=== PATIENT | male | born 1970 | race Caucasian/White ===

== ENCOUNTER 2023-08-05 09:39 | Outpatient (CLI) | payer OTHER, SELFPAY ==
--- NOTE | 2023-08-05 11:00 | NEURO_ITS ---
Impression: # Complains of numbness of upper right thigh. # Normal motor and sensory Nerve Conduction Study including F-waves. # Normal needle/EMG exam. # Clinical correlation recommended. Nerve Conduction Studies Anti Sensory Summary Table Stim Site NR Peak (ms) P-T Amp (?V) Site1 Site2 Delta-P (ms) Dist (cm) [place] (m/s) Left Saphenous Anti Sensory (Ant Med Mall) 14cm 3.3 19.1 14cm Ant Med Mall 3.3 0.0 Right Saphenous Anti Sensory (Ant Med Mall) 14cm 3.5 4.5 14cm Ant Med Mall 3.5 0.0 Left Sup Fibular Anti Sensory (Ant Lat Mall) 14 cm 3.7 9.7 14 cm Ant Lat Mall 3.7 16.0 43 Right Sup Fibular Anti Sensory (Ant Lat Mall) 14 cm 3.4 8.5 14 cm Ant Lat Mall 3.4 16.0 47 Left Sural Anti Sensory (Lat Mall) Calf 3.8 9.9 Calf Lat Mall 3.8 16.0 42 Right Sural Anti Sensory (Lat Mall) Calf 3.4 7.7 Calf Lat Mall 3.4 16.0 47 Motor Summary Table Stim Site NR Onset (ms) O-P Amp (mV) Site1 Site2 Delta-0 (ms) Dist (cm) [place] (m/s) Left Peroneal Motor (Vastus Med) Ankle 3.4 2.6 Popit Ankle 8.3 40.0 48 Popit 11.7 1.9 Right Peroneal Motor (Vastus Med) Ankle 3.3 2.4 Popit Ankle 8.0 38.0 48 Popit 11.3 2.0 Left Tibial Motor (Abd Shelton Brev) Ankle 3.8 2.5 Knee Ankle 8.9 40.0 45 Knee 12.7 2.5 Right Tibial Motor (Abd Shelton Brev) Ankle 3.5 4.2 Knee Ankle 8.6 40.0 47 Knee 12.1 3.1 F Wave Studies NR F-Lat (ms) L-R F-Lat (ms) Left Peroneal (Mrkrs) (EDB) 47.20 0.33 Right Peroneal (Mrkrs) (EDB) 46.88 0.33 Left Tibial (Mrkrs) (Abd Hallucis) 46.85 0.82 Right Tibial (Mrkrs) (Abd Hallucis) 47.66 0.82 EMG Side Muscle Nerve Root Ins Act Fibs Amp Dur Recrt Comment Right AntTibialis Dp Br Fibular L4-5 Nml Nml Nml Nml Nml Right Gastroc Tibial S1-2 Nml Nml Nml Nml Nml Right Fibularis Long Sup Br Fibular L5-S1 Nml Nml Nml Nml Nml Right Flex Dig Long Tibial L5-S2 Nml Nml Nml Nml Nml Right Ext Dig Brev Dp Br Fibular L5, S1 Nml Nml Nml Nml Nml Left AntTibialis Dp Br Fibular L4-5 Nml Nml Nml Nml Nml Left Gastroc Tibial S1-2 Nml Nml Nml Nml Nml Left Fibularis Long Sup Br Fibular L5-S1 Nml Nml Nml Nml Nml Left Flex Dig Long Tibial L5-S2 Nml Nml Nml Nml Nml Left Ext Dig Brev Dp Br Fibular L5, S1 Nml Nml Nml Nml Nml MTDD
== END 2023-08-05 09:40 | disposition home or self-care (01) ==
LOC: ANHNEURO 09:40
PROVIDERS: PCP Family Medicine; Visit Provider Neurological Surgery
DX: R20.0 Anesthesia of skin (principal)
CPT/HCPCS: 95886; 95911

== ENCOUNTER 2025-06-27 02:20 | Day surgery (SDC) | payer OTHER, SELFPAY ==
--- OUTSIDE RECORDS SUMMARY | 2025-03-03 11:30 | XMS_ITS ---
Author Organization [facility] [place] ([address]) Address [address] [place] [address] Care Team Providers Care Manager Asset Management Name Role Phone Erica Albrecht Primary Care Provider UnavailMary Lou Garcia Unavailable [phone] REASON FOR VISIT 8-10 episodes of throat tightness x 1-2 mins in the middle of night over the last 3 years, Chronic upper airway symptoms concerning for uncontrolled atopic disease Medications Medication SIG (Take, Route, Frequency, Duration) Notes Start Date End Date Status EPINEPHrine 0.3 MG/0.3ML Injection; Dura tion: 1 Days Active Rosuvastatin Calcium 20 MG Oral; Duratio n: 10 Days Active hydroCHLOROthiazide 12.5 MG 1 capsule in the morning Orally Once a day Active Vitamin D (Ergocalciferol) 1.25 MG (98921 UT) TAKE 1 CAPSULE BY MOUTH WEEKLY Oral; Duration: 28 Days Active Ezetimibe 10 MG 1 tablet Orally Once a day Not-Taking Albuterol Sulfate HFA 108 (90 Base) MCG/ACT INHALE 2 PUFFS BY MOUTH EVERY 4 HOURS NEEDED FOR SHORTNESS OF BREATH OR WHEEZING Inhalation Active Vitamin B 12 100 MCG as directed Orally Active Nitroglycerin 0.4 MG 1 tablet under the tongue and allow to dissolve as needed. Take every 5 minutes up to 3 times if chest pain persists Sublingual Three times a day Active Ezetimibe 10 MG 1 tablet Orally Once a day Active Clopidogrel Bisulfate 75 MG 1 tablet Ora lly Once a day Active Singulair 10 MG 1 tablet Orally Once a day Active Cetirizine HCl 10 MG 1 tablet Orally Onc e a day; Duration: 30 days 11/27/2024 Active Nasal Washes N/A as directed intranasally 11/27/2024 Active Omeprazole 20 MG 1 tablet Orally twice a day; Duration: 30 days Active Flonase Allergy Relief 50 MCG/ACT 1 spray in each nostril Nasally Twice a day Active Social History Sex Assigned At : Social History Observation Description Sex Assigned At Male Problems Problem Type SNOMED Code ICD Code Onset Dates Problem Status W/U Status Risk Notes Problem Chronic rhinitis (92153295) Chronic rhinitis (J31.0) Active confirmed Encounters Encounter Location Date Provider Diagnosis [facility] [address] [place] [address] 03/03/2025 Mary Lou Kimball Chronic sinusitis, unspecified J32.9 ; Laryngeal spasm J38.5 ; Hypertrophy of nasal turbinates J34.3 ; Chronic rhinitis J31.0 ; Gastro-esophageal reflux disease without esophagitis K21.9 and Shortness of breath R06.02 Assessments Encounter Date Diagnosis (ICD Code) Assessment Notes Treatment Notes Treatment Clinical Notes Section Notes 03/03/2025 Chronic sinusitis, unspecified (ICD-10 - J32.9) - Given recurrent sinusitis/bronchit is, melissa ARTHUR criteria for modified PIDD work-up. Will obtain labs now to include vitamin D level 03/03/2025 Laryngeal spasm (ICD-10 - J38.5) Possible VCD vs. Laryngeal spasms vs. uncontrolled ALVIN -There is flattening on inspiratory loop of spirometry. Will change him to PPI BID and return back for SPT -I will start him on VCD exercises and have him see Dr. Manfred Dudley at the voice and throat center at [facility] 03/03/2025 Hypertrophy of nasal turbinates (ICD-10 - J34.3) Chronic upper airway symptoms concerning for ARC. Unable to undergoing SPT today due to recent antihistamine use/dermatrophia. Plan to return next month for SPT holding all antihistamines x 7 days. Okay to use Flonase in the mean time 03/03/2025 Chronic rhinitis (ICD-10 - J31.0) See plan above 03/03/2025 Gastro-esophage al reflux disease without esophagitis (ICD-10 - K21.9) LIkely contributing to throat episodes -will switch to Omeprazole 20 mg BID for the next month as he needs to be off Pepcid for skin testing 03/03/2025 Shortness of breath (ICD-10 - R06.02) Spirometry today suggestive of mild restriction but TLC not measured. Likely due to body habitus -has yet to trial BECCA given by PCP -consider BD challenge but declined today as he reports no lower airway symptoms - only trouble breathing when he has these acute episodes -Will trial VCD exercises as there is clear inspiratory flattening 03/03/2025 Other Plan Of Treatment Medication Medication Name Sig Start Date Stop Date Notes Albuterol Sulfate HFA 108 (9 0 Base) MCG/ACT INHALE 2 PUFFS BY MOUTH EVERY 4 HOURS NEEDED FOR SHORTNESS OF BREATH OR WHEEZING Inhalation Singulair 10 MG 1 tablet Orally Once a day Omeprazole 20 MG 1 tablet Orally twic e a day; Duration: 30 days Flonase Allergy Relief 50 MCG/ACT 1 spray in each nostril Nasally Twice a day Treatment Notes Assessment Notes Chronic sinusitis, unspecified - Given r ecurrent sinusitis/bronchitis, melissa F criteria for modified PIDD work-up. Will obtain labs now to include vitamin D level Laryngeal spasm Possible VCD vs. Laryngeal spasms vs. uncontrolled ALVIN -There is flattening on inspiratory loop of spirometry. Will change him to PPI BID and return back for SPT -I will start him on VCD exercises and have him see Dr. Manfred Dudley at the voice and throat center at [facility] Hypertrophy of nasal turbinates Chronic upper airway symptoms concerning for ARC. Unable to undergoing SPT today due to recent antihistamine use/dermatrophia. Plan to return next month for SPT holding all antihistamines x 7 days. Okay to use Flonase in the mean time Chronic rhinitis See plan above Gastro-esophageal reflux dis ease without esophagitis LIkely contributing to throat episodes -will switch to Omeprazole 20 mg BID for the next month as he needs to be off Pepcid for skin testing Shortness of breath Spirometry today suggestive of mild restriction but TLC not measured. Likely due to body habitus -has yet to trial BECCA given by PCP -consider BD challenge but declined today as he reports no lower airway symptoms - only trouble breathing when he has these acute episodes -Will trial VCD exercises as there is clear inspiratory flattening Next Appt Details Follow Up: 4 Weeks, Reason: Evaluation and Management, Lab review, skin testing Provider Name:Mary Lou Kimball , 07/21/2025 12:30:00 PM, [address], [place], [address], Progress Notes * Preston PITTMAN WDOB:[birth year] (55 yo M)Acc No.[id number]:03/03/2025 Progress Notes Patient: Preston TSANG Provider: Alivia Kimball PA-C :1970 A ge:55 Y S ex:Male Date:03/03/2025 Address:[address] [place], [place] [id number] Pcp:Erica Albrecht Subjective: * Chief Complaints: * 1 . 8-10 episodes of throat tightness x 1-2 mins in the middle of night over the last 3 years. 2. Chronic upper airway symptoms concerning for uncontrolled atopic disease. * HPI: * Introduction: HPI: Madalyn Pittman is a 54-year-old male with a history of ALVIN, reflux, CAD with prior [place], Vitamin D and B12 deficiency here today for allergy evaluation and mangement. Preston is alone for today's visit. Here at the recommendatioin of Erica Albrecht. He reports experiencing at least 8-10 episodes over the last 3 years where he wakes up in the middle of the night with his throat tightening up, making it difficult to breathe. These episodes typically make him jump out of bed and are described as abrupt and scary. Over several minutues it is tight then relaxes. He also will walk around his house and try to relax or do deep breaths. His PCP wants to make sure his cat isnt triggering these episodes but he reports that cat has lived with him for years. These episodes are very random. Has occurred twice when eating spicy foods but doesnt recall specifics. No prior ENT evaluation. Has a CPAP, which his dane reports loud snoring even with use. Recently adjusted but he does not have a pulmonary provider. He has chronic reflux, has been on Famotidine BID for year but ran out 2 days ago. Also recently given albuterol to trial for these symptoms but hasnt used it. He has no history of chronic cough, dyspnea, or wheezing. No prior inhaler use. No ER visits for hospitalizations or ER visits. Descriptors of his upper airways symptoms are outlined below.He has never undergone allergy skin testing or received allergy immunotherapy. He has chronic sinus symptoms marked by congestion, MATUTE, pressure, and draiange. Has been using Flonase and Montelukast for years but feels neither helps. Recently tried Zyrtec but felt no difference. He has at least 3-5 sinus infections a year. He had sinus surgery roughly 30 years ago which he feels helps. No medications he feels helps his congestion.Additionally, Preston has a history of a heart attack in January 2023 and is managed by Cardiology. 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 * Allergic Rhinoconjunctivitis: Allergic rhinitis D o you have or suspect you have allergic rhinitis (itchy eyes, sneezing, congestion or runny nose triggered by allergies)? Y es W hich areas and what symptoms are involved? Please fill out each section below as needed. e ars,nose,headache,sinuses D o you have any of the following other symptoms associated with your allergic rhinitis? l oud snoring Ears S pecific affected area: b oth (bilateral) H ow often? i ntermittent S ymptoms: p lugged Nose S pecific area affected: b oth (bilateral) O ccurence? i ntermittent H ow frequent? w eekly W hen does this mostly occur? p .m. S ymptoms? c ongestion,sinus infection E ffective treatments? n jevon steroid sprays (Flonase or Nasonex or Veramyst) Sinuses D o you have sinus pain? Y es H ave you lost sense of taste? N o W here? c enter of forehead above eyes (frontal),over left cheek (maxillary),over right cheek (maxillary H ave you been treated with antibiotics for sinusitis? Y es H ow often in the past year? 3 - 5 times W hat is the longest duration of antibiotics prescribed and completed? 6 -10 days H ave you ever had a CT scan or xray? N o H ave you ever undergone sinus surgery? Y es W here? O ther outpatient physician or surgery center Headache S pecific area(s) affected? c enter forehead (frontal),over left cheek (maxillary),over right cheeck (maxillary) O ccurence? i ntermittent H ow frequent? w eekly W hat time of day does this mostly occur? a .m. * Prior Evaluations and Treatments: Prior evaluations and treatments H ave you been evaluated by another physician for allergic rhinitis, cough, wheezing, asthma, urticaria, angioedema, atopic dermatitis or eczema??No H ave you undergone testing for any aforementioned conditions or symptoms? N o H ave you ever been on allergy immunotherapy??No H ave you ever passed out during a blood draw, shot or vaccination? N o Last dose of antihistamine: H as your antihistamine been effective in controlling any of your symptoms? N o D o you take any other psychiatric medication??No * Infections: Vaccination History H ave you ever had a flu shot? Y es D ate of last flu shot? 0 08/04/2009 H ave you ever had a pneumococcal vaccine ([id number]-[id number])? N o H ave you ever had a tetanus vaccine (DUps-Jlog-[id number])? Y es D ate of last tetanus vaccine? 0 D id it contain pertussis as well? N o Ear Infections D o you have frequent ear infections? N o Sinusitis (Sinus infections) D o you have frequent episodes of sinusitis??Yes H ow many episodes over the past 12 months??3 H ave you been treated with antibiotics for sinusitis? Y es H ow many courses of antibiotics for sinusitis in the past year? 3 -5 times W hat is the longest course of antibiotics you have taken for sinusitis? 1 0 days H ave you been seen by an campus administrator or community relations specialist to evaluate your immune system function for recurrent sinus infections? N o Sinus Symptoms and Surgery D o you have chronic or recurrent sinus symptoms? Y es D o you have a history of nasal polyps? Y es D o you have sinus pain? Y es D o you have a loss of sense of taste? N o H ave you used any of the following treatments for your sinuses? n jevon steroid sprays H ave you ever had a sinus CT or X-Ray? N o H ave your ever undergone sinus surgery? Y es H ave you had more than one? N o I mprovement in symptoms after surgery? Y es Bronchitis History D o you get frequent bronchitis? N o Pneumonia History H ave you ever had pneumonia or recurrent pneumonia? Y es H ow many episodes in your entire life? 1 H ow many episodes in the past 12 months? 0 H ave you been treated with antibiotics for pneumonia? Y es H ave you been hospitalized for treatment??Yes H ave you been seen by an campus administrator or community relations specialist to evaluate your immune system function for recurrent pneumonia N o * Food allergy: Food Allergy D o you currently have or have you ever had any proven or suspected food allergies? N o * ROS: A LLERGY: runny nose Y es. e ar fullness Y es. s inus congestion Y es. P ositive p er the HPI and history, otherwise unremarkable. ? S PECIAL SENSES: Positve for n one. l oss of balance Y es. ? C ONSTITUTIONAL: fatigue Y es. P ositive for n one. E NT: sinus pain Y es. P ositive p er the HPI and history, otherwise unremarkable. R ESPIRATORY: chest congestion Y es. P ositive p er the HPI and history, otherwise unremakable. O PHTHALMOLOGY: Positive for p er the HPI and history, otherwise unremarkable. E NDOCRINOLOGY: sleep disturbance Y es. d iabetes Y es. P ositive for n one. C ARDIOLOGY: dizziness Y es. P ositive for n one. ? G ASTROENTEROLOGY: nausea Y es. v omiting N o. P ositive for n one. U ROLOGY: Positive for n one. D ERMATOLOGY: Positive for p er the HPI and history, otherwise unremakable. N EUROLOGY: headache Y es. t ingling numbness Y es. m brandon loss Y es. d izziness Y es. P ositive for n one. H EMATOLOGY/LYMPH: Positive for n one. M USCULOSKELETAL: joint pain Y es. j oint stiffness Y es. f racture Y es. c arpal tunnel Y es. P ositive for n one. P SYCHOLOGY: high stress level Y es. s leep disturbances Y es.?Positive for n one. M CELESTE REPRODUCTIVE: difficulty with erection Y es. d iminished sexual drive?Yes. A ll other review of systems per the HPI and history, otherwise unremarkable. * Medical History: * Medications: T aking Omeprazole 20 MG Capsule Delayed Release 1 tablet Orally twice a day , Taking Albuterol Sulfate HFA 108 (90 Base) MCG/ACT Aerosol Solution INHALE 2 PUFFS BY MOUTH EVERY 4 HOURS NEEDED FOR SHORTNESS OF BREATH OR WHEEZING Inhalation , Taking Vitamin B 12 100 MCG Lozenge as directed Orally , Taking Nitroglycerin 0.4 MG Tablet Sublingual 1 tablet under the tongue and allow to dissolve as needed. Take every 5 minutes up to 3 times if chest pain persists Sublingual Three times a day , Taking Ezetimibe 10 MG Tablet 1 tablet Orally Once a day , Taking Clopidogrel Bisulfate 75 MG Tablet 1 tablet Orally Once a day , Taking hydroCHLOROthiazide 12.5 MG Capsule 1 capsule in the morning Orally Once a day , Taking Vitamin D (Ergocalciferol) 1.25 MG (59916 UT) Capsule TAKE 1 CAPSULE BY MOUTH WEEKLY Oral , Taking EPINEPHrine 0.3 MG/0.3ML Solution Auto-injector Injection , Taking Rosuvastatin Calcium 20 MG Tablet Oral , Taking Flonase Allergy Relief 50 MCG/ACT Suspension 1 spray in each nostril Nasally Twice a day , Taking Singulair 10 MG Tablet 1 tablet Orally Once a day , Taking Cetirizine HCl 10 MG Tablet 1 tablet Orally Once a day , Taking Nasal Washes N/A 1 quart of sterilized tap water or distilled water, 1 tsp NaCl, 1 pinch of baking soda as directed intranasally , Not-Taking/PRN Ezetimibe 10 MG Tablet 1 tablet Orally Once a day Objective: * Vitals: * Examination: G eneral examination: General appearance: p leasant, well-developed, well-nourished, in no apparent distress, speaking in full sentences. HEENT: c onjunctiva are normal bilaterally, TMs without evidence of acute infection, turbinates 2+ swollen and pale inferiorly bilaterally, clear rhinorrhea is present, no polyps noted, no septal perforation, posterior oropharynx is clear without exudates, erythema on pharyngeal wall, no exudates, no tongue swelling, and uvula is midline. Oral cavity: n ormal, no lesions. Breasts : n ot performed. Heart: R RR, S1-S2, no murmurs, no rubs, no gallops. Lungs: c lear to auscultation in all lung moore, no wheezes, no crackles, no rhonchi. Neurologic exam: u nremarkable. Skin: n ormal, no visible rash, dermatographism, urticaria, angioedema. Back: n ormal. Extremities: n ormal ROM, no clubbing, no cyanosis, no edema. Genitalia: n ot performed. Assessment: * Assessment: 1. C hronic sinusitis, unspecified - J32.9 (Primary) 2 . L aryngeal spasm - J38.5 3 . H ypertrophy of nasal turbinates - J34.3 4 . C hronic rhinitis - J31.0 5 . G antonio-esophageal reflux disease without esophagitis - K21.9 6 . S hortness of breath - R06.02 Plan: * Treatment: 2. L aryngeal spasm Notes: Possible VCD vs. Laryngeal spasms vs. uncontrolled ALVIN -There is flattening on inspiratory loop of spirometry. Will change him to PPI BID and return back for SPT -I will start him on VCD exercises and have him see Dr. Manfred Dudley at the voice and throat center at [facility] 3. H ypertrophy of nasal turbinates Continue Flonase Allergy Relief Suspension, 50 MCG/ACT, 1 spray in each nostril, Nasally, Twice a day; C ontinue Singulair Tablet, 10 MG, 1 tablet, Orally, Once a day. Notes: Chronic upper airway symptoms concerning for ARC. Unable to undergoing SPT today due to recent antihistamine use/dermatrophia. Plan to return next month for SPT holding all antihistamines x 7 days. Okay to use Flonase in the mean time 4. C hronic rhinitis Notes: See plan above 5. G antonio-esophageal reflux disease without esophagitis Start Omeprazole Capsule Delayed Release, 20 MG, 1 tablet, Orally, twice a day, 30 days, 60 Tablet, Refills 1. Notes: LIkely contributing to throat episodes -will switch to Omeprazole 20 mg BID for the next month as he needs to be off Pepcid for skin testing 6. S hortness of breath Continue Albuterol Sulfate HFA Aerosol Solution, 108 (90 Base) MCG/ACT, INHALE 2 PUFFS BY MOUTH EVERY 4 HOURS NEEDED FOR SHORTNESS OF BREATH OR WHEEZING, Inhalation. Notes: Spirometry today suggestive of mild restriction but TLC not measured. Likely due to body habitus -has yet to trial BECCA given by PCP -consider BD challenge but declined today as he reports no lower airway symptoms - only trouble breathing when he has these acute episodes -Will trial VCD exercises as there is clear inspiratory flattening * Procedure Codes: 9 6160 PT-FOCUSED HLTH RISK ASSMT, G8427 DOC MEDS VERIFIED W/PT OR RE, A4617 Mouthpiece, 40545 RESPIRATORY FLOW VOLUME LOOP, 47234 Mookie Kimball Incident-to * Preventive Medicine: Counseling: M edication instruction: W atch for side effects of prescribed medications, Nasal steroid/antihistamine instruction: avoid septum. E ducation: G ENERAL EDUCATION: Our staff spent an additional 30 minutes in direct contact with the patient educating them on their current diagnoses and proper treatment and prevention of symptoms and the proper use of medications. E ducation 2: A RC EDUCATION: Our staff discussed the appropriate allergen avoidance measures and medication utilization including upper airway hygiene with daily nasal washes given the patient's clinical status and diagnoses. SCIT EDUCATION: Discussed allergy immunotherapy including the relative risks, benefits and alternatives to this treatment as an adjunctive measure to current therapy, Allergy Immunotherapy: Risks: bleeding, infection, allergic reaction, anaphylaxis = severe allergic reaction that can cause ; Benefits: reduced need for medications, improved symptoms, disease modification. Alternatives: watch/wait, change medication regimen, improve allergy avoidance measures, Our staff discussed the warning signs of anaphylaxis and the indications to use self-injectable epinephrine and seek urgent or emergent care. P atient education material sent to portal? Y es Screenings: F all Risk Fall Risk Assessment: N o falls in the past year +. * Follow Up: 4 Weeks (Reason: Evaluation and Management, Lab review, skin testing) * Billing Information: * Visit Code: 98102 Office Visit, New Pt., Level 4. Modifiers: 25 * Procedure Codes: 22988 PT-FOCUSED HLTH RISK ASSMT. G8427 DOC MEDS VERIFIED W/PT OR RE. A4617 Mouthpiece. 31881 RESPIRATORY FLOW VOLUME LOOP. 09175 Mookie Kimball Incident-to. * Electronic signature of Alhaji Kimball PA-C, [facility] on 06/27/2025 at 02:23 AM TELECOMMUNICATIONS FACILITY EXAMINER Sign off status: Pending * Provider: Alivia Kimball PA-C Date: 0 03/03/2025 Generated for Heath kahn/Lauren/eTransmitting on: 1 08/27/2024 02:23 AM TELECOMMUNICATIONS FACILITY EXAMINER History and Physical Notes * HPI (History of Present Illness) Category Sub-Category Detail Notes Category Not es *Introduction HPI: Preston Pittman is a 54-year-old male with a history of ALVIN, reflux, CAD with prior [place], Vitamin D and B12 deficiency here today for allergy evaluation and mangement. Preston is alone for today's visit. [facility] He reports experiencing at least 8-10 episodes over the last 3 years where he wakes up in the middle of the night with his throat tightening up, making it difficult to breathe. These episodes typically make him jump out of bed and are described as abrupt and scary. Over several minutues it is tight then relaxes. He also will walk around his house and try to relax or do deep breaths. His PCP wants to make sure his cat isnt triggering these episodes but he reports that cat has lived with him for years. These episodes are very random. Has occurred twice when eating spicy foods but doesnt recall specifics. No prior ENT evaluation. Has a CPAP, which his dane reports loud snoring even with use. Recently adjusted but he does not have a pulmonary provider. He has chronic reflux, has been on Famotidine BID for year but ran out 2 days ago. Also recently given albuterol to trial for these symptoms but hasnt used it. He has no history of chronic cough, dyspnea, or wheezing. No prior inhaler use. No ER visits for hospitalizations or ER visits. Descriptors of his upper airways symptoms are outlined below. He has never undergone allergy skin testing or received allergy immunotherapy. He has chronic sinus symptoms marked by congestion, MATUTE, pressure, and draiange. Has been using Flonase and Montelukast for years but feels neither helps. Recently tried Zyrtec but felt no difference. He has at least 3-5 sinus infections a year. He had sinus surgery roughly 30 years ago which he feels helps. No medications he feels helps his congestion. Additionally, Preston has a history of a heart attack in January 2023 and is managed by Cardiology. 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 He denies a history of physician-diagnosed allergic rhinitis, recurrent sinusitis or otitis media, recurrent pneumonia, asthma/RAD, eczema, food allergies, urticaria/angioedema, medication allergies, contact dermatitis, latex allergy, eosinophilic esophagitis or stinging insect hypersensitivity. *Allergic Rhinoconjunctivitis Ears Specific affected area:: both (bilateral) How often?: intermittent Symptoms:: plugged Nose Specific area affected:: both (b ilateral) Occurence?: intermittent How frequent?: weekly When does this mostly occur?: p.m. Symptoms?: congestion,sinus infection Effective treatments?: nasal steroid spr ays (Flonase or Nasonex or Veramyst) Headache Specific area(s) aff ected?: center forehead (frontal),over left cheek (maxillary),over right cheeck (maxillary) Occurence?: intermittent How frequent?: weekly What time of day does this mostly occur? : a.m. Sinuses Do you have sinus pain?: Yes Have you lost sense of taste?: No Where?: center of forehead above eyes (frontal),over left cheek (maxillary),over right cheek (maxillary Have you been treated with antibiotics f or sinusitis?: Yes How often in the past year?: 3 - 5 times What is the longest duration of antibiotics prescribed and completed?: 6-10 days Have you ever had a CT scan or xray?: No Have you ever undergone sinus surgery?: Yes Where?: Other outpatient physician or surgery center Allergic rhinitis Do you have or suspe ct you have allergic rhinitis (itchy eyes, sneezing, congestion or runny nose triggered by allergies)?: Yes Which areas and what symptoms are involved? Please fill out each section below as needed.: ears,nose,headache,sinuses Do you have any of the following other symptoms associated with your allergic rhinitis?: loud snoring *Infections Vaccination History Have you ever had a flu sh ot?: Yes Date of last flu shot?: 08/04/2009 Have you ever had a pneumococcal vaccine ([facility])?: No Have you ever had a tetanus vaccine (DTa p-Tdap-Td)?: Yes Date of last tetanus vaccine?: Did it contain pertussis as well?: No Ear Infections Do you have frequent ear infecti ons?: No Sinusitis (Sinus infections) Do you have frequen t episodes of sinusitis?: Yes How many episodes over the past 12 months?: 3 Have you been treated with antibiotics for sinusitis?: Yes How many courses of antibiotics for sinusitis in the past year?: 3-5 times What is the longest course of antibiotics you have taken for sinusitis?: 10 days Have you been seen by an campus administrator or community relations specialist to evaluate your immune system function for recurrent sinus infections?: No Sinus Symptoms and Surgery Do you have c hronic or recurrent sinus symptoms?: Yes Do you have a history of nasal polyps?: Yes Do you have sinus pain?: Yes Do you have a loss of sense of taste?: N o Have you used any of the fol lowing treatments for your sinuses?: nasal steroid sprays Have you ever had a sinus CT or X-Ray?: No Have your ever undergone sinus surgery?: Yes Have you had more than one?: No Improvement in symptoms after surgery?: Yes Bronchitis History Do you get frequent bronchiti s?: No Pneumonia History Have you ever had pneumonia or recurrent pneumonia?: Yes How many episodes in your entire life?: 1 How many episodes in the past 12 months?: 0 Have you been treated with antibiotics for pneumonia? : Yes Have you been hospitalized for treatment?: Yes Have you been seen by an campus administrator or community relations specialist to evaluate your immune system function for recurrent pneumonia: No *Prior Evaluations and Treatments Prior evaluations and treatments Have you been evaluated by another physician for allergic rhinitis, cough, wheezing, asthma, urticaria, angioedema, atopic dermatitis or eczema?: No Have you undergone testing for any afore mentioned conditions or symptoms?: No Have you ever been on allergy immunother apy?: No Have you ever passed out during a blood draw, shot or vaccination?: No Last dose of antihistamine: Has your ant ihistamine been effective in controlling any of your symptoms?: No Do you take any other psychiatric medica tion?: No *Food allergy Food Allergy Do you currently have or have you ever had any proven or suspected food allergies?: No Examination Category Sub-Category Detail Notes Category Not es General examination HEENT: conjunctiva are normal bilaterally, TMs without evidence of acute infection, turbinates 2+ swollen and pale inferiorly bilaterally, clear rhinorrhea is present, no polyps noted, no septal perforation, posterior oropharynx is clear without exudates, erythema on pharyngeal wall, no exudates, no tongue swelling, and uvula is midline Heart: RRR, S1-S2, no murmu rs, no rubs, no gallops Lungs: clear to auscultatio n in all lung moore, no wheezes, no crackles, no rhonchi Extremities: normal ROM, no clubb ing, no cyanosis, no edema General appearance: pleasant, well-devel oped, well-nourished, in no apparent distress, speaking in full sentences Skin: normal, no visible r susanna, dermatographism, urticaria, angioedema Neurologic exam: unremarkable Oral cavity: normal, no lesions Breasts : not performed Back: normal Genitalia: not performed
[2025-06-20 08:43] VITALS: BMI 35.0
--- NOTE | 2025-06-20 09:04 | PC.NURSE ---
Spoke with PATIENT regarding medication PLAVIX. PATIENT verbalizes understanding that the last dose is to be taken on 06/19/2025 and the Endoscopist will instruct them when to restart after the procedure.
--- OUTSIDE RECORDS SUMMARY | 2025-06-27 02:23 | XMS_ITS | Encounter Summary ---
Author Organization [facility] Address [facility] [place] [address] Care Team Providers Care Stem Setter Name Role Phone Richard Moreno MD Primary Care Provider [phone] Erica Albrecht Primary Care Provider [phone] Encounter Details Date Type Department Care Team (Late st Contact Info) Description 04/27/2023 [employer] Message Enc [facility], [address] [place], [place] [id number] Anjelica Ferrell PA-C [address] [facility], [address] [place], [place] [id number] labs Social History Tobacco Use Types Packs/Day Years Used Date Smoking Tobacco: Never Smokeless Tobacco: Never Alcohol Use Standard Drinks/Week Comments Yes 0 (1 standard drink = 0.6 oz pur e alcohol) Humiliation, Afraid, Rape, and Kick questionnair e Answer Date Recorded Within the last year, have y ou been afraid of your partner or ex-partner? No 01/09/2023 Within the last year, have y ou been humiliated or emotionally abused in other ways by your partner or ex-partner? No Within the last year, have y ou been kicked, hit, slapped, or otherwise physically hurt by your partner or ex-partner? No 01/09/2023 Within the last year, have y ou been raped or forced to have any kind of sexual activity by your partner or ex-partner? No 01/09/2023 AUDIT-C Answer Date Recorded Frequency of Alcohol Consumption Monthly or less 03/24/2019 Average Number of Drinks 1 or 2 019 Frequency of Binge Drinking Never 03/05 Overall Financial Resource Strain (CARDIA) Answe r Date Recorded How hard is it for you to pa y for the very basics like food, housing, medical care, and heating? Not hard at all 01/09/2023 PHQ-2 Answer Date Recorded PHQ-2 Score - If the patient scores above 3, please move on to questions 3-9 0 04/11/2021 Hunger Vital Sign Answer Date Recorded Within the past 12 months, y ou worried that your food would run out before you got the money to buy more. Never true 01/10/20 23 Within the past 12 months, t he food you bought just didn't last and you didn't have money to get more. Never true 01/09/2023 PRAPARE - Transportation Answer Date Re corded In the past 12 months, has l ack of transportation kept you from medical appointments or from getting medications? No 03/2023 In the past 12 months, has l ack of transportation kept you from meetings, work, or from getting things needed for daily living? No 01/09/2023 Housing Stability Vital Sign Answer Pedro e Recorded In the last 12 months, was t here a time when you were not able to pay the mortgage or rent on time? No 01/09/2023 In the last 12 months, how many places have you lived? 1 01/09/2023 In the last 12 months, was t here a time when you did not have a steady place to sleep or slept in a fci (including now)? No 01/09/2023 Sex and Gender Information Value Date Recorded Sex Assigned at Male 03/24/2019 1:16 PM CDT Legal Sex Male 8:20 PM CDT Gender Identity Male 03/24/2019 1:16 PM CDT Sexual Orientation Straight 03/24/2019 1: 16 PM CDT documented as of this encounter Functional Status * Are you deaf or do you have serious difficulty hearing Answer Date of Assessment Author Status No 01/09/2023 3:48 PM CDT Kenyatta Martinez R N Active * Are you blind or do you have serious difficulty seeing, even when wearing glasses? Answer Date of Assessment Author Status No 01/09/2023 3:48 PM CDT Kenyatta Martinez R N Active * Do you have serious difficulty walking or climbing stairs? Answer Date of Assessment Author Status No 01/09/2023 3:48 PM CDT Kenyatta Martinez R N Active * Do you have difficulty dressing or bathing? Answer Date of Assessment Author Status No 01/09/2023 3:48 PM CDT Kenyatta Martinez R N Active * Because of a physical, mental, or emotional condition, do you have difficulty doing errands alone such as visiting a doctor's office or shopping? Answer Date of Assessment Author Status No 01/09/2023 3:48 PM CDT Kenyatta Martinez R N Active documented as of this encounter Mental Status * Because of a physical, mental, or emotional condition, do you have serious difficulty concentrating, remembering, or making decisions? Answer Entry Date Author Status No 01/09/2023 3:48 PM CDT Kenyatta Martinez R N Active documented in this encounter Plan of Treatment Upcoming Encounters Date Type Department Care Team (Late st Contact Info) Description 11/04/2025 10:45 AM CDT Office Visit [facility], [facility], [address] [place] [address] Herbert Zarco MD [facility]. [address] [place] [address] 12/07/2025 10:00 AM CDT Office Visit [facility], [address] [place] [address] Anjelica Ferrell PA-C [address] [facility], [address] [place], [place] [address] documented as of this encounter Visit Diagnoses Not on filedocumented in this encounter Additional Health Concerns Infection Onset Date Last Indicated Resolved Time COVID-19 Rule Out 09/15/2024 09/15/2024 09/15/2024 2:47 PM [employer] Assessment Noted Time PHQ-9 Depression Total Score: 0 04/11/20 21 3:03 PM CDT documented as of this encounter Care Teams Stem Setter Relationship Specialty Start Date End Date iRchard Moreno MD [address] [place] [id number] PCP - General FAMILY PRACTICE 09/16/22 04/21/24 Erica Albrecht PA [address] [place] [id number] PCP - General PHYSICIAN DEVELOPMENT COACH 04/22/24 documented as of this encounter
--- OUTSIDE RECORDS SUMMARY | 2025-06-27 02:23 | XMS_ITS | Patient Health Record ---
Author Organization [facility] ([address]) Address [address] [place] [address] Care Team Providers Care Wound Care Technician Name Role Phone AlbrechtErica Primary Care Provider Unavailab Mary Lou Galindo Unavailable [phone] Anton Monge Unavailable [phone] Allergies No Known Allergies Results Component Value Reference Range Notes RESPIRATORY ALLERGY PROFILE REGION VIII: [place], [place] Reviewed date:10/30/2024 09:10:18 PM Interpretation:Abnormal Performing Lab:MANUEL, [facility], [address] [place], [address] DianaLavonne Fierro MD Notes/Report: NON-FASTING; NON-FASTING DERMATOPHAGOIDES PTERONYSSINUS (D1) IGE <0.10 CLASS 0 DERMATOPHAGOIDES FARINAE (D2) IGE <0.10 CLASS 0 PENICILLIUM NOTATUM (M1) IGE 0.11 CLASS 0/1 CLADOSPORIUM HERBARUM (M2) IGE 0.14 CLASS 0/1 ASPERGILLUS FUMIGATUS (M3) IGE 0.43 CLASS 1 ALTERNARIA ALTERNATA (M6) IGE <0.10 CLASS 0 COCKROACH (I6) IGE <0.10 CLASS 0 MAPLE (BOX ELDER) (T1) IGE 0.15 CLASS 0/1 MOUNTAIN CEDAR (T6) IGE <0.10 CLASS 0 WALNUT TREE (T10) IGE 0.32 CLASS 0/1 SYCAMORE (T11) IGE <0.10 CLASS 0 COTTONWOOD (T14) IGE <0.10 CLASS 0 WHITE RODNEY (T15) IGE <0.10 CLASS 0 OAK (T7) IGE <0.10 CLASS 0 ELM (T8) IGE <0.10 CLASS 0 HICKORY/PECAN TREE (T22) IGE 0.12 CLASS 0/1 WHITE MULBERRY (T70) IGE <0.10 CLASS 0 BERMUDA GRASS (G2) IGE <0.10 CLASS 0 JOLIE GRASS (G6) IGE <0.10 CLASS 0 COMMON RAGWEED (SHORT) (W1) IGE 0.16 CLASS 0/1 ROUGH PIGWEED (W14) IGE <0.10 CLASS 0 MOLDOVAN THISTLE (W11) IGE <0.10 CLASS 0 ROUGH COLON ELDER (W16) IGE <0.10 CLASS 0 MOUSE URINE PROTEINS (E72) IGE <0.10 CLASS 0 IMMUNOGLOBULIN E 149 <SR=096 kU/L CAT DANDER (E1) IGE <0.10 CLASS 0 DOG DANDER (E5) IGE <0.10 CLASS 0 INTERPRETATION Reviewed date:10/30/2024 09:09:39 PM Interpretation:Interpretation Performing Lab:MANUEL, [facility], [address] [place], [address] Yakelin Fierro MD Notes/Report: NON-FASTING; NON-FASTING INTERPRETATION Specific Level of Allergen IGE Class kU/L Specific IGE Antibody ----- --------- 0 <0.10 Absent/Undetectable 0/1 0.10-0.34 Very Low Level 1 0.35-0.69 Low Level 2 0.70-3.49 Moderate Level 3 3.50-17.4 High Level 4 17.5-49.9 Very High Level 5 50-100 Very High Level 6 >100 Very High Level The clinical relevance of allergen results of 0.10-0.34 kU/L are undetermined and intended for specialist use. Allergens denoted with a include results using one or more analyte specific reagents. In those cases, the test was developed and its analytical performance characteristics have been determined by [facility]. It has not been cleared or approved by the U.S. Food and Drug Administration. This assay has been validated pursuant to the CLIA regulations and is used for clinical purposes. VITAMIN D, 25-OH, TOTAL, [place] Reviewed date:10/30/2024 09:11:56 PM Interpretation:Normal Performing Lab:Katerine, [facility], [address], [place], [address] Adriana Lynne Notes/Report: NON-FASTING; NON-FASTING VITAMIN D, 25-OH, TOTAL 46.5 >29.9 ng/mL This test was developed and its analytical performance characteristics have been determined by [facility]. It has not been cleared or approved by the U.S. Food and Drug Administration. This assay has been validated pursuant to the CLIA regulations and is used for clinical purposes. Vitamin D, 25-Hydroxy reports concentrations of two common forms, 25-OHD2 and 25-OHD3. 25-OHD3 indicates both endogenous production and supplementation. 25-OHD2 is an indicator of exogenous sources, such as diet or supplementation. Therapy is based on measurement of Total 25-OHD, with levels <20 ng/mL indicative of Vitamin D deficiency, while levels between 20 ng/mL and 30 ng/mL suggest insufficiency. Optimal levels are >=30 ng/mL. Vitamin D, 25-Hydroxy reports concentrations of two common forms, 25-OHD2 and 25-OHD3. 25-OHD3 indicates both endogenous production and supplementation. 25-OHD2 is an indicator of exogenous sources, such as diet or supplementation. Therapy is based on measurement of Total 25-OHD, with levels <20 ng/mL indicative of Vitamin D deficiency, while levels between 20 ng/mL and 30 ng/mL suggest insufficiency. Optimal levels are > or = 30 ng/mL. VITAMIN D, 25-OH, D3 15.4 This test was developed and its analytical performance characteristics have been determined by [facility]. It has not been cleared or approved by the FDA. This assay has been validated pursuant to the CLIA regulations and is used for clinical purposes. VITAMIN D, 25-OH, D2 31.1 This test was developed and its analytical performance characteristics have been determined by [facility]. It has not been cleared or approved by the FDA. This assay has been validated pursuant to the CLIA regulations and is used for clinical purposes. IMMUNOGLOBULINS A/E/G/M,SERU M Reviewed date:10/30/2024 09:10:59 PM Interpretation:Abnormal Performing Lab:KS, [facility], [address] [facility], [place], [address] Yakelin Fierro MD Notes/Report: NON-FASTING; NON-FASTING IMMUNOGLOBULIN A 227 47-310 mg/dL IMMUNOGLOBULIN E 149 <OX=586 kU/L IMMUNOGLOBULIN G 9467 480-5313 mg/dL IMMUNOGLOBULIN M 75 50-300 mg/dL STREPTOCOCCUS PNEUMONIAE AB (IGG) (23 SEROTYPES) Reviewed date:10/30/2024 09:08:28 PM Interpretation:Abnormal Performing Lab:EZ, [facility],, [address] [place], [address] Aubree Reyes MD,PhD,RAZIA Notes/Report: NON-FASTING; NON-FASTING SEROTYPE 1 (1) <0.3 SEROTYPE 2 (2) 0.9 SEROTYPE 3 (3) <0.3 SEROTYPE 4 (4) <0.3 SEROTYPE 5 (5) 0.7 SEROTYPE 8 (8) 0.5 SEROTYPE 9 (9N) <0.3 SEROTYPE 12 (12F) <0.3 SEROTYPE 14 (14) 2.3 SEROTYPE 17 (17F) <0.3 SEROTYPE 19 (19F) <0.3 SEROTYPE 20 (20) 1.6 SEROTYPE 22 (22F) <0.3 SEROTYPE 23 (23F) <0.3 SEROTYPE 26 (6B) <0.3 SEROTYPE 34 (10A) <0.3 SEROTYPE 43 (11A) 0.3 SEROTYPE 51 (7F) <0.3 SEROTYPE 54 (15B) <0.3 SEROTYPE 56 (18C) <0.3 SEROTYPE 57 (19A) <0.3 SEROTYPE 68 (9V) <0.3 SEROTYPE 70 (33F) <0.3 Serologic correlates of protection against pneumococcal disease have not been rigorously established for all patient populations. Published data and expert consensus (including WHO) suggest protection from invasive disease usually occurs at levels >or =0.3-0.50 mcg/mL for healthy children receiving pneumococcal conjugate vaccines. Higher titers may be necessary to protect from non-invasive infection (e.g., pneumonia, otitis, sinusitis). Expert opinion suggests that a cut-off of >= 1.3 mcg/mL may be a more relevant value to assess antibody responses after pneumococcal polysaccharide vaccines or for immunocompromised patients. In addition to antibody quantity, protection also depends on antibody avidity and opsonophagocytic activity. Some experts consider that post-vaccination (4-6 weeks) IgG seroconversion and/or 2- to 4-fold rise in IgG titers for >50% to 70% of vaccine serotypes demonstrates a normal post-vaccine serologic response. Persons with high initial serotype-specific titers may have less robust responses. [facility] uses a multi-analyte immunodetection (MAID) method. The method employs the Sprooki flow cytometric system which measures multiple analytes simultaneously. The FDA standard reference serum 89-S is used as the calibration standard. Results are reported in mcg/mL. This assay detects all of the 23 of the serotypes in the 23-valent polysaccharide vaccine and 12 of the 13 serotypes in the 13-valent conjugate vaccine. This test was developed and its analytical performance characteristics have been determined by [facility]. It has not been cleared or approved by FDA. This assay has been validated pursuant to the CLIA regulations and used for clinical purposes. For additional information, please refer to http://education.iDevicess.c om/faq/NTZ375 (This link is being provided for informational/ educational purposes only.) H. INFLUENZAE TYPE B AB Reviewed date:10/30/2024 09:07:23 PM Interpretation:Abnormal Performing Lab:LISA [facility],, [address] [place], [address] Aubree Reyes MD,PhD,RAZIA Notes/Report: NON-FASTING; NON-FASTING HAEMOPHILUS INFLUENZA TYPE B ANTIBODY (IGG) <0.15 REFERENCE RANGE: > or = 1.00 mcg/mL INTERPRETIVE CRITERIA: <0.15 mcg/mL Nonprotective Antibody Level 0.15 - 0.99 mcg/mL Indeterminate for protective antibody > or = 1.00 mcg/mL Protective Antibody Level IgG antibody to polyribosylribitol phosphate (PRP), the capsular polysaccharide of Haemophilus influenzae type b, is measured in micrograms/mL (mcg/mL), based on correlations with a reference Jackie radioimmunoprecipitation assay (MEGAN). The exact level of antibody needed for protection from infection has not been clarified; values ranging from 0.15 mcg/mL to 1.00 mcg/mL have been reported. A four-fold increase in the PRP IgG antibody level between pre-vaccination and post-vaccination sera is considered evidence of effective immunization. DIPHTHERIA AND TETANUS ANTIT OXOIDS Reviewed date:10/30/2024 09:09:18 PM Interpretation:Abnormal Performing Lab:EZ, [facility],, [address] [place], [address] Aubree Reyes MD,PhD,RAZIA Notes/Report: NON-FASTING; NON-FASTING DIPHTHERIA ANTITOXOID <0.10 REFERENCE RANGE: 0.10 IU/mL or greater Interpretive Criteria <0.10 IU/mL Nonprotective Antibody Level > Or = 0.10 IU/mL Protective Antibody Level Antibody levels > or = 0.10 IU/mL are considered protective. After a primary series of three properly spaced diphtheria toxoid doses in adults or four doses in infants, a protective level of antitoxin (defined as > or = 0.10 IU of antitoxin/mL) is reached in more than 95% of immunized persons. This test was developed and its analytical performance characteristics have been determined by [facility]. It has not been cleared or approved by FDA. This assay has been validated pursuant to the CLIA regulations and is used for clinical purposes. TETANUS ANTITOXOID 2.78 REFERENCE RANGE: 0.10 IU/mL or greater Antibody levels > or = 0.10 IU/mL are considered protective. However, tetanus can still occur in some individuals with such antibody levels. These results should not be used to determine the necessity to administer antitoxin when clinically indicated. This test was developed and its analytical performance characteristics have been determined by [facility]. It has not been cleared or approved by FDA. This assay has been validated pursuant to the CLIA regulations and is used for clinical purposes. Spirometry Reviewed date:10/21/2024 01:53:55 PM Interpretation:Abnormal Performing Lab: Notes/Report: Abnormal SpiroPreBronchodilator_FVC 3.04 SpiroPostBronchodilator_FEF2 5_75 0 SpiroPreBronchodilator_FEF25 _75 3.65 SpiroPreBronchodilator_FEV1 2.61 SpiroPrecentPredictionPost_F EF25_75 0 SpiroPrecentPredictionPost_F EV1 0 SpiroPrecentPredictionPost_F EV1_OVER_FVC 0 SpiroPrecentPredictionPost_F VC 0 SpiroPrecentPredictionPre_FE F25_75 104.9 SpiroPrecentPredictionPre_FE V1 74.8 SpiroPrecentPredictionPre_FE V1_OVER_FVC 107.4 SpiroPrecentPredictionPre_FV C 69.7 SpiroPredicted_FEF25_75 3.48 SpiroPreBronchodilator_FEV1_ OVER_FVC 85.78 SpiroPreBronchodilator_PEF 6.44 SpiroPostBronchodilator_FVC 0 SpiroPostBronchodilator_FEV1 0 SpiroPostBronchodilator_FEV1 _OVER_FVC 0 SpiroPostBronchodilator_PEF 0 SpiroPredicted_FVC 4.36 SpiroPredicted_FEV1 3.49 SpiroPredicted_FEV1_OVER_FVC 79.85 SpiroPredicted_PEF 8.04 STREPTOCOCCUS PNEUMONIAE AB (IGG) (23 SEROTYPES) Reviewed date:04/09/2025 04:37:22 PM Interpretation:Abnormal Performing Lab:EZ, [facility],, [address] [place], [address] Aubree Reyes MD,PhD,RAZIA Notes/Report: NON-FASTING FASTING:NO FASTING: NO SEROTYPE 1 (1) 11.4 SEROTYPE 2 (2) 39.2 SEROTYPE 3 (3) 0.4 SEROTYPE 4 (4) <0.3 SEROTYPE 5 (5) 23.1 SEROTYPE 8 (8) 34.4 SEROTYPE 9 (9N) 0.9 SEROTYPE 12 (12F) 0.3 SEROTYPE 14 (14) 129.9 SEROTYPE 17 (17F) 2.3 SEROTYPE 19 (19F) 2.5 SEROTYPE 20 (20) 12.8 SEROTYPE 22 (22F) 0.8 SEROTYPE 23 (23F) 0.7 SEROTYPE 26 (6B) 1.9 SEROTYPE 34 (10A) 0.4 SEROTYPE 43 (11A) 1.5 SEROTYPE 51 (7F) 0.6 SEROTYPE 54 (15B) 3.6 SEROTYPE 56 (18C) 4.0 SEROTYPE 57 (19A) 15.1 SEROTYPE 68 (9V) 1.6 SEROTYPE 70 (33F) 0.5 Serologic correlates of protection against pneumococcal disease have not been rigorously established for all patient populations. Published data and expert consensus (including WHO) suggest protection from invasive disease usually occurs at levels >or =0.3-0.50 mcg/mL for healthy children receiving pneumococcal conjugate vaccines. Higher titers may be necessary to protect from non-invasive infection (e.g., pneumonia, otitis, sinusitis). Expert opinion suggests that a cut-off of >= 1.3 mcg/mL may be a more relevant value to assess antibody responses after pneumococcal polysaccharide vaccines or for immunocompromised patients. In addition to antibody quantity, protection also depends on antibody avidity and opsonophagocytic activity. Some experts consider that post-vaccination (4-6 weeks) IgG seroconversion and/or 2- to 4-fold rise in IgG titers for >50% to 70% of vaccine serotypes demonstrates a normal post-vaccine serologic response. Persons with high initial serotype-specific titers may have less robust responses. [facility] uses a multi-analyte immunodetection (MAID) method. The method employs the Sprooki flow cytometric system which measures multiple analytes simultaneously. The FDA standard reference serum 89-S is used as the calibration standard. Results are reported in mcg/mL. This assay detects all of the 23 of the serotypes in the 23-valent polysaccharide vaccine and 12 of the 13 serotypes in the 13-valent conjugate vaccine. This test was developed and its analytical performance characteristics have been determined by [facility]. It has not been cleared or approved by FDA. This assay has been validated pursuant to the CLIA regulations and used for clinical purposes. For additional information, please refer to http://education.iDevicess.c om/faq/ZTH711 (This link is being provided for informational/ educational purposes only.) H. INFLUENZAE TYPE B AB Reviewed date:04/11/2025 08:08:02 AM Interpretation:Normal Performing Lab:LISA [facility],, [address], [place], [address] Aubree Reyes MD,PhD,RAZIA Notes/Report: NON-FASTING FASTING:NO FASTING: NO HAEMOPHILUS INFLUENZA TYPE B ANTIBODY (IGG) 3.00 REFERENCE RANGE: > or = 1.00 mcg/mL INTERPRETIVE CRITERIA: <0.15 mcg/mL Nonprotective Antibody Level 0.15 - 0.99 mcg/mL Indeterminate for protective antibody > or = 1.00 mcg/mL Protective Antibody Level IgG antibody to polyribosylribitol phosphate (PRP), the capsular polysaccharide of Haemophilus influenzae type b, is measured in micrograms/mL (mcg/mL), based on correlations with a reference Jackie radioimmunoprecipitation assay (MEGAN). The exact level of antibody needed for protection from infection has not been clarified; values ranging from 0.15 mcg/mL to 1.00 mcg/mL have been reported. A four-fold increase in the PRP IgG antibody level between pre-vaccination and post-vaccination sera is considered evidence of effective immunization. DIPHTHERIA AND TETANUS ANTIT OXOIDS Reviewed date:04/09/2025 04:36:10 PM Interpretation:Normal Performing Lab:LSIA, [facility],, [address] [place], [address] Aubree Reyes MD,PhD,RAZIA Notes/Report: NON-FASTING FASTING:YES FASTING: YES DIPHTHERIA ANTITOXOID 0.36 REFERENCE RANGE: 0.10 IU/mL or greater Interpretive Criteria <0.10 IU/mL Nonprotective Antibody Level > Or = 0.10 IU/mL Protective Antibody Level Antibody levels > or = 0.10 IU/mL are considered protective. After a primary series of three properly spaced diphtheria toxoid doses in adults or four doses in infants, a protective level of antitoxin (defined as > or = 0.10 IU of antitoxin/mL) is reached in more than 95% of immunized persons. This test was developed and its analytical performance characteristics have been determined by [facility]. It has not been cleared or approved by FDA. This assay has been validated pursuant to the CLIA regulations and is used for clinical purposes. TETANUS ANTITOXOID >5.33 REFERENCE RANGE: 0.10 IU/mL or greater Antibody levels > or = 0.10 IU/mL are considered protective. However, tetanus can still occur in some individuals with such antibody levels. These results should not be used to determine the necessity to administer antitoxin when clinically indicated. This test was developed and its analytical performance characteristics have been determined by [facility]. It has not been cleared or approved by FDA. This assay has been validated pursuant to the CLIA regulations and is used for clinical purposes. Reason For Referral Diagnosis 1 Laryngeal spasm (J38 .5) Referral Organization [facility] Referring Provider First Name Mary Lou Referring Provider Last Name Jigar Referring Provider Speciality Allergy/Im munology Referred Provider Antonio Dudley Referred Provider Specialty Otology, Lar yngology, Rhinology Referral Priority Routine Medications Medication SIG (Take, Route, Frequency, Duration) Notes Start Date End Date Status Flonase Allergy Relief 50 MCG/ACT 1 spray in each nostril Nasally Twice a day Active Rosuvastatin Calcium 20 MG Oral; Duratio n: 10 Days Active Albuterol Sulfate HFA 108 (90 Base) MCG/ACT INHALE 2 PUFFS BY MOUTH EVERY 4 HOURS NEEDED FOR SHORTNESS OF BREATH OR WHEEZING Inhalation Active EPINEPHrine 0.3 MG/0.3ML Injection; Dura tion: 1 Days Active Cetirizine HCl 10 MG 1 tablet Orally Onc e a day; Duration: 30 days Active Mupirocin 2 % 1 application Externally Twice a day; Duration: 5 days 04/07/2025 Active Singulair 10 MG 1 tablet Orally Once a day Active Ezetimibe 10 MG 1 tablet Orally Once a day Not-Taking Clopidogrel Bisulfate 75 MG 1 tablet Ora lly Once a day Active Omeprazole 20 MG 1 tablet Orally twice a day; Duration: 30 days Active Vitamin D (Ergocalciferol) 1.25 MG (53674 UT) TAKE 1 CAPSULE BY MOUTH WEEKLY Oral; Duration: 28 Days Active hydroCHLOROthiazide 12.5 MG 1 capsule in the morning Orally Once a day Active Vitamin B 12 100 MCG as directed Orally Active Nasal Washes N/A as directed intranasally Active Clindamycin HCl 300 MG 1 capsule Orally every 12 hrs; Duration: 7 day(s) 04/07/2025 Active Ezetimibe 10 MG 1 tablet Orally Once a day Active Nitroglycerin 0.4 MG 1 tablet under the tongue and allow to dissolve as needed. Take every 5 minutes up to 3 times if chest pain persists Sublingual Three times a day Active Immunizations Vaccine Route Administration Date Status Comme nts NOC PedvaxHIB IM Intramuscular 02/03/2025 Administered NOC Pneumovax 23 IM Intramuscular 01/31/2025 Administered NOC Prevnar 20 IM Intramuscular 04/19/2025 Administered T-Dap IM Intramuscular 01/31/2025 Administered Social History Tobacco Use: Social History Observation Description Date Details (start date - stop date) Never Smoker NA - NA Sex Assigned At : Social History Observation Description Sex Assigned At Male Tobacco Control (Standard) Question Answer Notes Tobacco use: Nonsmoker AUDIT-C (Standard) Question Answer Notes Did you have a drink contain ing alcohol in the past year? Yes How often did you have a dri nk containing alcohol in the past year? 2 to 4 times a month (2 points) How many drinks did you have on a typical day when you were drinking in the past year? 7 to 9 drinks (3 points) How often did you have six o r more drinks on one occasion in the past year? 2 to 4 times a month (2 points) Points 7 Interpretation Positive Problems Problem Type SNOMED Code ICD Code Onset Dates Problem Status W/U Status Risk Notes Problem Chronic allergic conjunctivitis (84984877) Other chronic allergic conjunctivitis (H10.45) Active confirmed Problem Allergic rhinitis caused by pollen (disorder) (64262704) Allergic rhinitis due to pollen (J30.1) Active confirmed Problem Allergic rhinitis (71887590) Other allergic rhinitis (J30.89) Active confirmed Problem Chronic rhinitis (39370531) Chronic rhinitis (J31.0) Active confirmed Problem Allergic rhinitis caused by animal hair and dander (268092924109790) Allergic rhinitis due to animal (cat) (dog) hair and dander (J30.81) Active confirmed Problem Chronic sinusitis (97814617) Other chronic sinusitis (J32.8) Active confirmed Problem Chronic sinusitis (89665413) Chronic sinusitis, unspecified (J32.9) Active confirmed Problem Gastro-esophageal reflux disease without esophagitis (282798953) Gastro-esophageal reflux disease without esophagitis (K21.9) Active confirmed Problem Myocardial infarction due to demand ischemia (disorder) (0147273791177961 4) Myocardial infarction type 2 (I21.A1) Active confirmed Vital Signs Respiratory Rate 17 /min 04/07/2025 Oximetry 95 % 04/07/2025 Blood pressure diastolic 82 mm Hg 04/07/2025 Height 67 in 04/07/2025 Blood pressure systolic 131 mm Hg 04/07/2025 Weight 232.4 lbs 04/07/2025 BMI 36.4 kg/m2 04/07/2025 Encounters Encounter Location Date Provider Diagnosis [facility] [address] [place] [address] 04/07/2025 Mary Lou Young Chronic sinusitis, unspecified J32.9 ; Allergic rhinitis due to pollen J30.1 ; Laryngeal spasm J38.5 ; Allergic rhinitis due to animal (cat) (dog) hair and dander J30.81 ; Other allergic rhinitis J30.89 ; Gastro-esophageal reflux disease without esophagitis K21.9 ; Shortness of breath R06.02 and Rash and other nonspecific skin eruption R21 [address] [address] 02/03/2025 Antonluzmaria Monge Encounter for immunization Z23 and Encounter for antibody response examination Z01.84 [facility] [address] [place] [address] 10/21/2024 Mary Lou Young Chronic sinusitis, unspecified J32.9 ; Laryngeal spasm J38.5 ; Hypertrophy of nasal turbinates J34.3 ; Chronic rhinitis J31.0 ; Gastro-esophageal reflux disease without esophagitis K21.9 and Shortness of breath R06.02 [facility] [address] [place] [address] 04/19/2025 Antonluzmaria Monge Encounter for immunization Z23 and Encounter for antibody response examination Z01.84 [place] [address] [address] [place] [address] 11/25/2024 Mary Lou Young Chronic sinusitis, unspecified J32.9 ; Allergic rhinitis due to pollen J30.1 ; Laryngeal spasm J38.5 ; Allergic rhinitis due to animal (cat) (dog) hair and dander J30.81 ; Other allergic rhinitis J30.89 ; Gastro-esophageal reflux disease without esophagitis K21.9 and Shortness of breath R06.02 [place] [address] [address] [place] [address] 01/31/2025 Antonluzmaria Monge Encounter for immunization Z23 ; Encounter for antibody response examination Z01.84 and Other chronic sinusitis J32.[address] [address] 01/31/2025 Mary Lou Kimball Chronic sinusitis, unspecified J32.9 [facility] [address] [place] [address] 10/28/2024 Mary Lou Kimball [facility] [place] [address] 04/09/2025 Mary Lou Kimball [facility] [address] [place] [address] 03/03/2025 Mary Lou Kimball [facility] [address] [place] [address] 02/28/2025 Mary Lou Kimball Assessments Encounter Date Diagnosis (ICD Code) Assessment Notes Treatment Notes Treatment Clinical Notes Section Notes 10/21/2024 Laryngeal spasm (ICD-10 - J38.5) Possible VCD vs. Laryngeal spasms vs. uncontrolled ALVIN -There is flattening on inspiratory loop of spirometry. Will change him to PPI BID and return back for SPT -I will start him on VCD exercises and have him see Dr. Manfred Dudley at the [facility] at [facility] 10/21/2024 Chronic sinusitis, unspecified (ICD-10 - J32.9) - Given recurrent sinusitis/bronchit is, melissa BARRERA criteria for modified PIDD work-up. Will obtain labs now to include vitamin D level 11/25/2024 Allergic rhinitis due to pollen (ICD-10 - J30.1) Given the history and symptoms, skin testing was performed to common aeroallergens to determine atopic status.Prseton clearly suffers from atopic disease based upon our skin testing today. Accordingly, we have introduced a new, aggressive medication regimen, discussed nasal washes and allergy-specific avoidance measures. We also discussed adjunctive therapies including subcutaneous, specific allergen immunotherapy as relates to the treatment and prevention of atopic disease. He/She is currently considering the risks, benefits and alternatives to this care. Risks: bleeding, infection, allergic reaction, anaphylaxis; Benefits: reduced need for medications, improved symptoms, disease modification. Alternatives: watch/wait, change medication regimen, improve allergy avoidance measures. -wants to return to discuss SCIT after obtaining vaccines 11/25/2024 Chronic sinusitis, unspecified (ICD-10 - J32.9) - Given recurrent sinusitis/bronchit is, nmeys [facility] criteria for modified PIDD work-up -Normal immunoglobuins and Vitamin D -He has inadequate Hib, Diptheria, and Pneumococcal protection (2 of 23). Recommend returning for boosters with recheck of labs 4-6 weeks later. Needs Pneumovax, Tdap, and Hib 01/31/2025 Chronic sinusitis, unspecified (ICD-10 - J32.9) 02/03/2025 Encounter for immunization (ICD-10 - Z23) 01/31/2025 Encounter for immunization (ICD-10 - Z23) 04/07/2025 Allergic rhinitis due to pollen (ICD-10 - J30.1) Given the history and symptoms, skin testing was performed to common aeroallergens to determine atopic status.Preston clearly suffers from atopic disease based upon our skin testing today. Accordingly, we have introduced a new, aggressive medication regimen, discussed nasal washes and allergy-specific avoidance measures. We also discussed adjunctive therapies including subcutaneous, specific allergen immunotherapy as relates to the treatment and prevention of atopic disease. He/She is currently considering the risks, benefits and alternatives to this care. Risks: bleeding, infection, allergic reaction, anaphylaxis; Benefits: reduced need for medications, improved symptoms, disease modification. Alternatives: watch/wait, change medication regimen, improve allergy avoidance measures. -wants to return to discuss SCIT after work-up and EGD 04/07/2025 Chronic sinusitis, unspecified (ICD-10 - J32.9) - Given recurrent sinusitis/bronchit is, nmeys [facility] criteria for modified PIDD work-up -Normal immunoglobuins and Vitamin D -He has inadequate Hib, Diptheria, and Pneumococcal protection (2 of 23). He received boosters and just had recheck of titers. Will call with results. No interval infections! 04/19/2025 Encounter for immunization (ICD-10 - Z23) 04/19/2025 Encounter for antibody response examination (ICD-10 - Z01.84) 04/07/2025 Laryngeal spasm (ICD-10 - J38.5) Possible VCD vs. Laryngeal spasms vs. uncontrolled ALVIN -There is flattening on inspiratory loop of spirometry. Will change him to PPI BID and return back for SPT -I had him try VCD exercises next time this occur but from his description he is now choking on spit. He needs an EGD. Having colonscopy in Nov will contact PCP to add on EGD -Consider input by Dr. 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 Unable to undergoing SPT today due to recent antihistamine use/dermatrophia. Plan to return next month for SPT holding all antihistamines x 7 days. Okay to use Flonase in the mean time 11/25/2024 Laryngeal spasm (ICD-10 - J38.5) Possible VCD vs. Laryngeal spasms vs. uncontrolled ALVIN -There is flattening on inspiratory loop of spirometry. Will change him to PPI BID and return back for SPT -I will start him on VCD exercises and have him see Dr. Manfred Dudley at the voice and throat center at [facility] -has not had any interal episodes since last visit 11/25/2024 Allergic rhinitis due to animal (cat) (dog) hair and dander (ICD-10 - J30.81) Follow allergen avoidance, meds and consider SCIT as an adjunctive treatment to current regimen 10/21/2024 Chronic rhinitis (ICD-10 - J31.0) See plan above 01/31/2025 Other chronic sinusitis (ICD-10 - J32.8) 04/07/2025 Allergic rhinitis due to animal (cat) (dog) hair and dander (ICD-10 - J30.81) Follow allergen avoidance, meds and consider SCIT as an adjunctive treatment to current regimen 04/07/2025 Other allergic rhinitis (ICD-10 - J30.89) Follow allergen avoidance, meds and consider SCIT as an adjunctive treatment to current regimen 11/25/2024 Other allergic rhinitis (ICD-10 - J30.89) Follow allergen avoidance, meds and consider SCIT as an adjunctive treatment to current regimen 10/21/2024 Gastro-esophagea l reflux disease without esophagitis (ICD-10 - K21.9) LIkely contributing to throat episodes -will switch to Omeprazole 20 mg BID for the next month as he needs to be off Pepcid for skin testing 10/21/2024 Shortness of breath (ICD-10 - R06.02) Spirometry today suggestive of mild restriction but TLC not measured. Likely due to body habitus -has yet to trial BECCA given by PCP -consider BD challenge but declined today as he reports no lower airway symptoms - only trouble breathing when he has these acute episodes -Will trial VCD exercises as there is clear inspiratory flattening 11/25/2024 Gastro-esophagea l reflux disease without esophagitis (ICD-10 - K21.9) LIkely contributing to throat episodes -recently switched to Omeprazole 20 mg BID in order to be off Pepcid. -await GI input for throat symptoms 04/07/2025 Gastro-esophagea l reflux disease without esophagitis (ICD-10 - K21.9) LIkely contributing to throat episodes -recently switched to Omeprazole 20 mg BID but not consistently taking. Resume now -await GI input for throat symptoms 04/07/2025 Shortness of breath (ICD-10 - R06.02) Spirometry last visit suggestive of mild restriction but TLC not measured. Likely due to body habitus -has yet to trial BECCA given by PCP -consider BD challenge but declined today as he reports no lower airway symptoms - only trouble breathing when he has these acute episodes -Will trial VCD exercises as well 11/25/2024 Shortness of breath (ICD-10 - R06.02) Spirometry last visit suggestive of mild restriction but TLC not measured. Likely due to body habitus -has yet to trial BECCA given by PCP -consider BD challenge but declined today as he reports no lower airway symptoms - only trouble breathing when he has these acute episodes -Will trial VCD exercises as well 04/07/2025 Rash and other nonspecific skin eruption (ICD-10 - R21) LIkely has folliculitis, start PO abx and mupirocin -see derm if not improving 03/03/2025 Other 10/21/2024 Other 11/25/2024 Other 04/07/2025 Other Plan Of Treatment Pending Test Test Name Order Date STREPTOCOCCUS PNEUMONIAE IGG AB (23 SERO TYPES) 10/21/2024 STREPTOCOCCUS PNEUMONIAE IGG AB (23 SERO TYPES) 11/25/2024 STREPTOCOCCUS PNEUMONIAE IGG AB (23 SERO TYPES) 01/31/2025 DIPHTHERIA ANTITOXOID AND TETANUS ANTITO XOID ANTIBODIES 01/31/2025 DIPHTHERIA ANTITOXOID AND TETANUS ANTITO XOID ANTIBODIES 11/25/2024 DIPHTHERIA ANTITOXOID AND TETANUS ANTITO XOID ANTIBODIES 10/21/2024 HAEMOPHILUS INFLUENZAE B ANTIBODY, IGG 0 10/21/2024 HAEMOPHILUS INFLUENZAE B ANTIBODY, IGG 0 11/25/2024 HAEMOPHILUS INFLUENZAE B ANTIBODY, IGG 0 01/31/2025 Next Appt Details Provider Name:Mary Lou CramerJoy Kimball , 07/21/2025 12:30:00 PM, [address] [facility], [address], [address], Insurance Providers Payer Name Payer Address Payer Phone Subscriber Number Group Number Insured Name Patient Relationship to Insured Coverage Start Date Coverage End Date [facility] [address] [place] [address] [phone] [id number] Preston Pittman Self - patient is the insured Medical (General) History Medical History History ICD Code Essential (primary) hypertension I10 Myocardial infarction type 2 I21.A1 Surgical History Surgery Date(Month/Year) heart stent 01/2023
--- OUTSIDE RECORDS SUMMARY | 2025-06-27 02:23 | XMS_ITS | Encounter Summary ---
Author Organization [facility] Address [address] [place] [address] Care Team Providers Care Printing Agent Name Role Phone Richard Moreno MD Primary Care Provider [phone] Erica Albrecht Primary Care Provider [phone] Encounter Details Date Type Department Care Team (Late st Contact Info) Description 07/07/2023 Abstract [facility], [address] [address] Jean Merlos MA Social History Tobacco Use Types Packs/Day Years [...] place to sleep or slept in a longterm (including now)? No 01/09/2023 Sex and Gender [...] Description 11/04/2025 10:45 AM CDT Office Visit [facility], [facility] [address] [place] [address] Herbert Zarco MD [facility]. [address] [place] [address] 12/07/2025 10:00 AM CDT Office Visit [facility], [address] [place] [address] Anjelica Ferrell PA-C 3 [facility], [address] [place] [address] documented as of this encounter Procedures Procedure Name Priority Date/Time Associated Diagnosis Comments CBC (OUTSIDE LAB) Routine 07/04/2023 BNP Routine 07/04/2023 LIPID PANEL Routine 07/04/2023 VITAMIN D, 25 OH Routine 07/04/2023 documented in this encounter Results * VITAMIN D, 25 OH (07/04/2023) Pathologist [facility] VITAMIN D 25 HYDROXY S/P/B 26 07/04/2023 us Default History Genericprovider LABORATORY Final Result * LIPID PANEL (07/04/2023) Pathologist [facility] CHOLESTEROL 151 HDL 43 TRIGLYCERIDES 111 NON HDL CHOLESTEROL 108 LDL (CALCULATED) 87 07/04/2023 us Default History Genericprovider LABORATORY Final Result * BNP (07/04/2023) Pathologist [facility] B TYPE NATRIURETIC PEPTIDE 28 07/04/2023 us Default History Genericprovider LABORATORY Final Result * CBC (OUTSIDE LAB) (07/04/2023) Pathologist [facility] WBC 6.8 HGB 14.2 HCT 44.5 PLT 239 07/04/2023 us Default History Genericprovider LAB-OUTSIDE/ABST RACTED Final Result documented in this encounter Visit Diagnoses Not on filedocumented in this encounter Additional Health Concerns Infection Onset Date Last Indicated Resolved Time COVID-19 Rule Out 09/15/2024 09/15/2024 09/15/2024 2:47 PM WIRE COATING OPERATOR METAL Assessment Noted Time PHQ-9 Depression Total Score: 0 04/11/20 21 3:03 PM CDT documented as of this encounter Care Teams Printing Agent Relationship Specialty Start Date End Date Richard Moreno MD [address] [place] [id number] PCP - General FAMILY PRACTICE 09/16/22 04/21/24 Erica Albrecht PA [address] [place] [id number] PCP - General PHYSICIAN ELECTRICIAN BUS 04/22/24 documented as of this encounter
--- OUTSIDE RECORDS SUMMARY | 2025-06-27 02:23 | XMS_ITS | Encounter Summary ---
Author Organization [facility] Address [facility] [place] [address] Care Team Providers Care Termite Inspector Name Role Phone Richard Moreno MD Primary Care Provider [phone] Erica Albrecht Primary Care Provider [phone] Encounter Details Date Type Department Care Team (Late st Contact Info) Description 07/07/2023 Advance Care Plannin g Encounter [facility], [facility] [address] [place] [address] Jean Merlos MA Social History Tobacco Use [...] place to sleep or slept in a chcf (including now)? No 01/09/2023 Sex and Gender [...] Status No 01/09/2023 3:48 PM CDT Kenyatta Martinez, Rosalba N Active * Are you blind or [...] Description 11/04/2025 10:45 AM CDT Office Visit [facility], [facility] [address] [place] [address] Herbert Zarco MD Three [facility]. [facility] [address] [place] [address] 12/07/2025 10:00 AM CDT Office Visit [facility], [facility] [address] [place] [address] Anjelica Ferrell PA-C 3 [facility], [address] [place] [address] documented as of this encounter Visit Diagnoses Not on filedocumented in this encounter Additional Health Concerns Infection Onset Date Last Indicated Resolved Time COVID-19 Rule Out 09/15/2024 09/15/2024 09/15/2024 2:47 PM CUFF CUTTER Assessment Noted Time PHQ-9 Depression Total Score: 0 04/11/20 21 3:03 PM CDT documented as of this encounter Care Teams Termite Inspector Relationship Specialty Start Date End Date Richard Moreno MD [address] [place] [id number] PCP - General FAMILY PRACTICE 09/16/22 04/21/24 Erica Albrecht PA [address] [place] [id number] PCP - General PHYSICIAN SENIOR JAVA ARCHITECT 04/22/24 documented as of this encounter
--- OUTSIDE RECORDS SUMMARY | 2025-06-27 02:23 | XMS_ITS | Clinical Summary ---
Author Organization [facility] Address [address] [place] [address] Care Team Providers Care Gamer Name Role Phone Erica Albrecht Primary Care Provider [phone] Allergies No known active allergies Medications montelukast (SINGULAIR) 10 MG tablet Take 1 tablet (10 mg total) by mouth nightly at bedtime. Active vitamin B-12 (CYANOCOBALAMI N) 100 MCG tablet Take 0.5 tablets (50 mcg total) by mouth daily. Active nitroglycerin (NITROSTAT) 0.[address] 1 tablet (0.4 mg total) under the tongue every 5 (five) minutes as needed for Chest Pain. 20 tablet 3 Active vitamin D2, ergocalciferol , (DRISDOL) 1.25 mg capsule Take 1 capsule (1.25 mg total) by mouth once a week. 3 Active Testosterone Micronized Powder 4 Active cetirizine (ZYRTEC) 5 MG tablet Take 1 tablet (5 mg total) by mouth daily. Active famotidine (PEPCID) 20 MG tabletIndicati ons:Acute non-recurrent frontal sinusitis Take 1 tablet (20 mg total) by mouth nightly as needed for Heartburn. 30 tablet 5 Active hydroCHLOROthi azide (MICROZIDE) 12.5 MG tablet TAKE 1 TABLET EVERY MORNING 90 tablet 1 5 Active ezetimibe (ZETIA) 10 MG tablet TAKE 1 TABLET DAILY 90 tablet 1 5 Active rosuvastatin (CRESTOR) 20 MG tablet TAKE 1 TABLET NIGHTLY AT BEDTIME 90 tablet 1 5 Active clopidogrel (PLAVIX) 75 MG tablet TAKE 1 TABLET DAILY 90 tablet 1 5 Active clopidogrel (PLAVIX) 75 MG tablet TAKE 1 TABLET DAILY 90 tablet 5 06/13/20 25 Discontinued rosuvastatin (CRESTOR) 20 MG tablet TAKE 1 TABLET NIGHTLY AT BEDTIME 90 tablet 5 06/13/20 25 Discontinued Active Problems Problem Noted Date Diagnosed Date Coronary artery disease invo lving cap[place] grande coronary artery of [place] heart without angina pectoris 04/25/2025 Essential (primary) hypertension 04/25/2025 Hyperlipidemia, mixed 04/25/2025 STEMI (ST elevation myocardial infarction) 01/09 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 Capsulitis 04/01/2017 Bursitis of multiple sites 03/10/2017 Long-term use of high-risk medication 09/12/2016 Onychomycosis of toenail 09/05/2016 Plantar fasciitis 09/05/2016 Resolved Problems Problem Noted Date Diagnosed Date Resolved Date Osteophyte 04/16/2018 07/30/2023 Metatarsophalangeal (joint) sprain 10/02/2017 07/30/2023 Pes equinus, acquired 09/11/20162022 Plantar warts 09/11/2016 04/27/2024 Talipes calcaneovalgus 09/11/201607/30 Encounter for preventive health examination 09/02/2016 04/14/2020 Encounters Date Type Department Care Team Description 06/08/2025 Telephone [facility], [address] [address] Herbert Zarco MD Surgical Clearance 05/30/2025 6:47 AM CDT - 05/30/2025 11:59 PM CDT Hospital Encounter [facility] [address] [place] [address] Maggi Jimenez NP Discharge Disposition: Home or Self Care (Routine Discharge) 05/30/2025 Travel 04/29/2025 1:00 PM CDT Office Visit [facility], [address] [address] Anjelica Ferrell PA-C Follow Up 04/29/2025 Travel from Last 3 Months Immunizations Immunization Administration Dates Next Due Tdap (Adacel) 06/23/2021 Social History Tobacco Use Types Packs/Day Years Used Date Smoking Tobacco: Never Smokeless Tobacco: Never Tobacco Cessation:Counseling Given: Not Answered Alcohol Use Standard Drinks/Week Comments Yes 0 [...] at all 01/09/2023 PHQ-2 Answer Date Recorded Patient Health Questionnaire-2 Score 0 10/06/2023 Hunger Vital Sign Answer Date Recorded Within [...] place to sleep or slept in a [place] health care facility (including now)? No 01/09/2023 Sex and Gender Information Value Date Recorded Sex Assigned at Male 03/24/2019 1:16 PM CDT Legal Sex Male 8:20 PM CDT Gender Identity Male 03/24/2019 1:16 PM CDT Sexual Orientation Straight 03/24/2019 1: 16 PM CDT Last Filed Vital Signs Vital Sign Reading Time Taken Comments Blood Pressure 132/86 04/29/2025 2:01 PM CDT Pulse 96 04/29/2025 1:14 PM CDT Temperature 38.2 C (100.8 F) 09/15/2024 2:20 PM CERTIFIED PERSONAL FINANCE COUNSELOR Respiratory Rate 21 09/15/2024 2:20 PM CERTIFIED PERSONAL FINANCE COUNSELOR Oxygen Saturation 97% 04/29/2025 1:14 PM CDT Inhaled Oxygen Concentration - - Weight 105.2 kg (232 lb) 04/29/2025 1:14 PM CDT Height 172.7 cm (5' 8) 04/29/2025 1:14 PM CDT Body Mass Index 35.28 04/29/2025 1:14 PM CDT Plan of Treatment Upcoming Encounters Date Type Department Care Team (Late st Contact Info) Description 11/04/2025 10:45 AM CDT Office Visit [facility], [facility] [address] [place], [place] [id number] Herbert Zarco MD [facility]. [facility] [address] [place], [place] [id number] 12/07/2025 10:00 AM CDT Office Visit [facility], [facility] [address] [place] [address] Anjelica Ferrell PA-C [address] [facility], [address] [place] [address] Health Maintenance Due Date Last Done Comments Colorectal Cancer Screening Colonoscopy (10 Years) 1968 Annual Physical 01/02/1971 Hepatitis C 01/02/1986 Hepatitis B Vaccines (1 of 3 - 19+ 3-dose series) 01/02/1987 Pneumococcal Vaccine: 50+ Years (1 of 2 - PCV) 01/02/1987 Zoster Vaccines (1 of 2) 01/02/2018 PHQ-2 (Physician [place]) 08/04/2024 10/06/2023 COVID-19 Vaccine (3 - 2024- season) 2025 03/12/2021, 02/19/2021 Influenza Adult (#1) 2025 [facility] LDL 06/17/2025 06/17/2024, 04/04, 10/16/2023, Additional history exists DTaP, Tdap and Td Vaccines (3 - Td or Tdap) 06/23/2031 06/23/2021, 05/29/2018 Hepatitis A Vaccines Aged Out No long er eligible based on patient's age to complete this topic Meningococcal B Vaccine Aged Out No l onger eligible based on patient's age to complete this topic Meningococcal Vaccine Aged Out No octavio corinne eligible based on patient's age to complete this topic RSV Immunizations Under 20 Months Aged Out No longer eligible based on patient's age to complete this topic Medical Devices Implanted Type Area Contract Manager Device Identifier Shelf Expiration Date Model / Serial / Lot Stent-01/09/2023 Implanted:Qty: 1 on 01/09/2023 by Herbert Zarco MD Stent N/A: Coronary [employer] Procedures Procedure Name Priority Date/Time Associated Diagnosis Comments MRI LUMB SPINE WO CON Routine 05/30/2025 7:47 AM CDT Radiculopathy, lumbar region LIPID PANEL Routine 06/17/2024 8:50 AM CERTIFIED PERSONAL FINANCE COUNSELOR Coronary artery disease involving cap[place] grande coronary artery of cap[place] heart without angina pectoris from Last 3 Months or Most Recently Relevant to Health Maintenance Results * MRI LUMB SPINE WO CON (05/30/2025 7:47 AM CDT) Anatomical Region Laterality Modality Spine Magnetic Resonan ce 06/04/2025 8:59 AM CDT Impressions 06/04/2025 9:14 AM CDT IMPRESSION: Multilevel degenerative change as described. No acute abnormality.. Similar to mild advancement of degenerative change. Multilevel spinal stenosis. Referred By: MAGGI JIMENEZ Interpreted By: Gustavo Crenshaw MD, 06/04/2025 8:59 AM Narrative 06/04/2025 9:14 AM CDT [facility] [address] [facility] [place] [address] IMAGING STUDIES: MRI LUMB SPINE WO CON DATE: 05/30/2025 7:06 AM INDICATION: Radiculopathy, lumbar region. Low back pain radiating into both legs. COMPARISON: 09/16/2022 FINDINGS: Vertebral bodies have a grossly normal height. Mild endplate degenerative edema at L5-S1. Moderate loss of disc space height at this level. Mild loss at the other levels. Multilevel disc dehydration. Stable grade 1 retrolisthesis of L5 on S1. No gross pars defect. Conus ends at T12-L1 without gross abnormality. No paraspinal lesions. T12-L1: No disc herniation or spinal stenosis. Mild facet joint degenerative change. Mild right-sided neural foramen narrowing due to degenerative change. Left-sided neural foramen is patent. L1-L2: Similar mild disc bulge with overhanging osteophyte. Stable mild to moderate spinal stenosis. Mild ligamentum flavum hypertrophy and facet joint degenerative change. Bilateral neuroforamen are patent. L2-L3: Similar mild disc bulge without disc herniation. Borderline spinal stenosis is similar. Mild facet joint degenerative change. Similar mild right-sided neural foramen narrowing. Left-sided neural foramen is patent. L3-L4: Mild increase in disc/osteophyte complex. Moderate spinal stenosis. Prominent epidural fat. Mild facet joint degenerative change. Similar mild to moderate bilateral neuroforamen narrowing L4-L5: Similar mild posterior disc/osteophyte complex. Moderate ligamentum flavum hypertrophy and facet joint degenerative change produces similar moderate spinal stenosis. Similar mild bilateral neuroforamen narrowing due to degenerative change. L5-S1: Moderate posterior disc/osteophyte complex with similar mild central protrusion. Mild mass effect upon the anterior thecal sac and adjacent S1 nerve roots. May cause symptomatology with the bilateral S1 nerve roots. No gross spinal stenosis. Mild facet joint degenerative change. Stable mild bilateral neuroforamen narrowing. Procedure Note Gustavo Crenshaw MD - 06/04/2025 [facility] [address] [place] [address] IMAGING STUDIES: MRI LUMB SPINE WO CONDATE: 05/30/2025 7:06 AM INDICATION: Radiculopathy, lumbar region. Low back pain radiating intoboth legs. COMPARISON: 09/16/2022 FINDINGS: Vertebral bodies have a grossly normal height. Mild endplate degenerativeedema at L5-S1. Moderate loss of disc space height at this level. Mildloss at the other levels. Multilevel disc dehydration. Stable grade 1 retrolisthesis of L5 on S1. No gross pars defect. Conusends at T12-L1 without gross abnormality. No paraspinal lesions. T12-L1: No disc herniation or spinal stenosis. Mild facet jointdegenerative change. Mild right-sided neural foramen narrowing due todegenerative change. Left-sided neural foramen is patent. L1-L2: Similar mild disc bulge with overhanging osteophyte. Stable mildto moderate spinal stenosis. Mild ligamentum flavum hypertrophy and facetjoint degenerative change. Bilateral neuroforamen are patent. L2-L3: Similar mild disc bulge without disc herniation. Borderline spinalstenosis is similar. Mild facet joint degenerative change. Similar mildright-sided neural foramen narrowing. Left-sided neural foramen ispatent. L3-L4: Mild increase in disc/osteophyte complex. Moderate spinalstenosis. Prominent epidural fat. Mild facet joint degenerative change.Similar mild to moderate bilateral neuroforamen narrowing L4-L5: Similar mild posterior disc/osteophyte complex. Moderateligamentum flavum hypertrophy and facet joint degenerative change producessimilar moderate spinal stenosis. Similar mild bilateral neuroforamennarrowing due to degenerative change. L5-S1: Moderate posterior disc/osteophyte complex with similar mildcentral protrusion. Mild mass effect upon the anterior thecal sac andadjacent S1 nerve roots. May cause symptomatology with the bilateral J2dcroo roots. No gross spinal stenosis. Mild facet joint degenerativechange. Stable mild bilateral neuroforamen narrowing. IMPRESSION: Multilevel degenerative change as described. No acute abnormality.. Similar to mild advancement of degenerative change. Multilevel spinalstenosis. Referred By: MAGGI JIMENEZ Interpreted By: Gustavo Crenshaw MD, 06/04/2025 8:59 AM Maggi Jimenez PASSENGER REPRESENTATIVE MRI Final Result * LIPID PANEL (06/17/2024 8:50 AM CERTIFIED PERSONAL FINANCE COUNSELOR) CHOLESTEROL 109 <200.0 MG/DL 06/17/2024 9:33 AM [facility] TRIGLYCERIDES 73 <150 MG/DL 06/17/2024 9:33 AM [facility] HDL 41 >40.0 MG/DL 06/17/2024 9:33 AM [facility] LDL (CALCULATED) 53 <100 MG/DL 06/17/20 9:33 AM [facility] NON HDL CHOLESTEROL 68 <130 MG/DL 06/17 9:33 AM [facility] CHOL/HDL RATIO 2.7 0.0 - 4.5 06/17/2024 9:33 AM [facility] VLDL CALCULATION 15 5 - 55 MG/DL 06/17/2024 9:33 AM [facility] LIPID INTERPRETATION 06/17/2024 9:33 AM [facility] Comment: [facility] CONCENSUS REPORT RECOMMENDATIONS: ADULT CHILD LOW RISK: CHOLESTEROL <200 <170 TRIGLYCERIDE <150 --- HDL >=60 --- LDL <100 <110 BORDERLINE: CHOLESTEROL 200-239 170-199 TRIGLYCERIDE 150-199 --- HDL 40-59 --- LDL 100-159 110-129 HIGH RISK: CHOLESTEROL >=240 >=200 TRIGLYCERIDE >=200 --- HDL <40 --- LDL >=160 >=130 06/17/2024 8:50 AM CERTIFIED PERSONAL FINANCE COUNSELOR us Anjelica Ferrell PA-C LABORATORY Final Resul t [facility] [address] [place] [address], from Last 3 Months or Most Recently Relevant to Health Maintenance Insurance Advance Directives * Full Code (Latest Code Status on File) Date Activated Date Inactivated Comments 01/09/2023 3:31 PM 01/11/2023 12:58 PM Care Teams Gamer Relationship Specialty Start Date End Date Erica Albrecht PA [address] [place] [address] PCP - General PHYSICIAN SALES ROUTE DRIVER HELPER 04/22/24
[2025-06-27 07:04] VITALS: BP 126/78; PULSE 87; RESP 18; TEMP 36.4; O2SAT 97
[2025-06-27] MEDS: LACTATED RINGERS 1,000 ML 150 ML IV CONT (07:20)
--- NOTE | 2025-06-27 07:35 | WPDANESEPPF ---
Anes - Initial Pre Proc Eval Procedure: Operation Date: 06/27/25 08:15 Proposed Procedures p Screening Colonoscopy - Ramírez Alvarado MD Date/Time: 06/27/25 07:35 Surgeon: Ramírez Alvarado MD Pre Op Diagnosis: Screening Patient Data Age: 55 Gender: M Height: 1.73 m Weight: 104.5 kg Last Vital Signs Temp 97.5 F L 06/27/25 07:04 Pulse 87 06/27/25 07:04 Resp 18 06/27/25 07:04 BP 126/78 06/27/25 07:04 Pulse Ox 97 06/27/25 07:04 O2 Del Method Room Air 06/27/25 07:04 Allergies Allergy/AdvReac Type Severity Reaction Status Date / Time atorvastatin Allergy myalgia Verified 06/27/25 07:02 Home Medications ?Medication ?Instructions ?Recorded ?Confirmed ?Type cholecalciferol (vitamin D3) 25 25 mcg PO DAILY 11/04/22 06/20/25 History mcg (1,000 unit) capsule nitroglycerin 0.4 mg sublingual 0.4 mg sublingual Q5M PRN chest 01/19/23 06/20/25 History tablet pain rosuvastatin 20 mg tablet (Crestor) 20 mg PO DAILY 01/19/23 06/20/25 History B12 1 tablet BYMOUTH .qod 01/27/23 06/20/25 History ezetimibe 10 mg tablet (Zetia) 10 mg PO DAILY #90 tabs 08/26/23 06/20/25 Rx hydrochlorothiazide 12.5 mg tablet 12.5 mg PO DAILY #90 tabs 08/26/23 06/20/25 Rx clopidogrel 75 mg tablet 75 mg PO DAILY 10/08/23 06/27/25 History epinephrine 0.3 mg/0.3 mL 0.3 mg (0.3 mL) IM ONCE #2 ea 09/30/24 06/20/25 Rx injection, auto-injector (EpiPen 2-Sandro) testosterone 5 ml transdermal DAILY hypogonadism 09/30/24 06/20/25 History ergocalciferol (vitamin D2) 1,250 1,250 mcg PO WEEKLY #14 caps 10/13/24 06/20/25 Rx mcg (50,000 unit) capsule montelukast 10 mg tablet 10 mg PO DAILY #90 tabs 03/29/25 06/20/25 Rx famotidine 20 mg tablet 20 mg PO DAILY PRN heartburn 06/17/25 06/20/25 History Patient hx anesthesia problems: none Family hx anesthesia problems: none Results Review: All pre-operative results and documents have been reviewed as part of the pre-operative evaluation. [facility] Past Medical History Medical History Allergic rhinitis Neck pain CAD (coronary artery disease) (~01/2023) STEMI 01/08/23 ALVIN (obstructive sleep apnea) sleep study 2008, oral appliance Vitamin B12 deficiency Vitamin D deficiency Dyslipidemia Nasal polyps Dysphasia Lumbar spondylosis Seasonal allergies Lumbar pain Surgical History Surgical History Stented coronary artery circumflex 01/08/23 H/O sinus surgery Family History Family History Mother Breast cancer Father Malignant neoplasm of prostate Sibling Heart disease Grandparent Heart disease Social History Social History Smoking status: Never smoker Alcohol intake: current Drinks per week: 2 Alcohol use details: BEERS Substance use: never Do You Feel Safe in your Home?: Yes Lack of Transportation: No Lack of Food: Never True Current Housing: I Have Housing Concerned About Future Housing: No Difficulty Paying Gas/Electric Bills: No Difficulty Paying for Meds: No Currently Unemployed: No Education: Trade/Vocational Certificate Difficulty w/ Childcare or Family Care: No Living arrangements: with family Occupation/Education: occupation Additional occupation/education comments: [employer] Gender identity (if verbalized by the patient): Male Spiritual care concerns: No Agree to blood products: Yes Anes - Eval Final PreProcedure Day of Procedure 06/27/25 07:35 Patient weight: obese Lungs: normal air movement Airway: Mallampati scale class III Neurological: alert and oriented Last oral intake: >/= 8 hours ASA classification: III Emergent: no Anesthetic plan: proceed Anesthesia type and monitoring: general GIVS and standard monitoring Results Review: All pre-operative results and documents have been reviewed as part of the pre-operative evaluation. 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 Informed Consent: The patient's anesthetic plan and its attendant risks and benefits were discussed with the patient/family/POA. Questions were solicited and answers provided to the satisfaction of the patient/family/POA.
--- NOTE | 2025-06-27 07:56 | PM.IMHP ---
H&P: HPI History of Present Illness Date/Time: 06/27/25 07:56 Chief Complaint: Screening colonoscopy Narrative: This is the patient's first colonoscopy. There are no GI symptoms and there is no family history of colorectal cancer. Review of Systems Review of Systems: All systems reviewed & are unremarkable except as noted in HPI and below PMFSH Past Medical History Medical History Allergic rhinitis Neck pain CAD (coronary artery disease) (~01/2023) STEMI 01/08/23 ALVIN (obstructive sleep apnea) sleep study 2008, oral appliance Vitamin B12 deficiency Vitamin D deficiency Dyslipidemia Nasal polyps Dysphasia Lumbar spondylosis Seasonal allergies Lumbar pain Surgical History Surgical History Stented coronary artery circumflex 01/08/23 H/O sinus surgery Family History Family History Mother Breast cancer Father Malignant neoplasm of prostate Sibling Heart disease Grandparent Heart disease Social History Social History Smoking status: Never smoker Alcohol intake: current Drinks per week: 2 Alcohol use details: BEERS Substance use: never Do You Feel Safe in your Home?: Yes Lack of Transportation: No Lack of Food: Never True Current Housing: I Have Housing Concerned About Future Housing: No Difficulty Paying Gas/Electric Bills: No Difficulty Paying for Meds: No Currently Unemployed: No Education: Trade/Vocational Certificate Difficulty w/ Childcare or Family Care: No Living arrangements: with family Occupation/Education: occupation Additional occupation/education comments: [employer] Gender identity (if verbalized by the patient): Male Spiritual care concerns: No Agree to blood products: Yes Meds Home Medications and Allergies Home Medications ?Medication ?Instructions ?Recorded ?Confirmed ?Type cholecalciferol (vitamin D3) 25 25 mcg PO DAILY 11/04/22 06/20/25 History mcg (1,000 unit) capsule nitroglycerin 0.4 mg sublingual 0.4 mg sublingual Q5M PRN chest 01/19/23 06/20/25 History tablet pain rosuvastatin 20 mg tablet (Crestor) 20 mg PO DAILY 01/19/23 06/20/25 History B12 1 tablet BYMOUTH .qod 01/27/23 06/20/25 History ezetimibe 10 mg tablet (Zetia) 10 mg PO DAILY #90 tabs 08/26/23 06/20/25 Rx hydrochlorothiazide 12.5 mg tablet 12.5 mg PO DAILY #90 tabs 08/26/23 06/20/25 Rx clopidogrel 75 mg tablet 75 mg PO DAILY 10/08/23 06/27/25 History epinephrine 0.3 mg/0.3 mL 0.3 mg (0.3 mL) IM ONCE #2 ea 09/30/24 06/20/25 Rx injection, auto-injector (EpiPen 2-Sandro) testosterone 5 ml transdermal DAILY hypogonadism 09/30/24 06/20/25 History ergocalciferol (vitamin D2) 1,250 1,250 mcg PO WEEKLY #14 caps 10/13/24 06/20/25 Rx mcg (50,000 unit) capsule montelukast 10 mg tablet 10 mg PO DAILY #90 tabs 03/29/25 06/20/25 Rx famotidine 20 mg tablet 20 mg PO DAILY PRN heartburn 06/17/25 06/20/25 History Allergies Allergy/AdvReac Type Severity Reaction Status Date / Time atorvastatin Allergy myalgia Verified 06/27/25 07:02 Vital Signs Vital Signs - 24 hr 06/27/25 07:04 Temperature 97.5 F L Pulse Rate 87 Respiratory Rate 18 Blood Pressure 126/78 Pulse Oximetry 97 Oxygen Delivery Room Air Exam Const: General: cooperative and healthy appearing Resp: Effort & Inspection: normal respiratory effort and able to speak in complete sentences Auscultation: clear to auscultation bilaterally Cardio: Rate: regular rate Rhythm: regular rhythm GI: Inspection: normal to inspection GI Palp: No No hepatosplenomegaly present Auscultation: normal bowel sounds Rectal Exam: deferred Skin: General skin exam: normal color Psych: Appearance: grossly normal Mental Status: mental status grossly normal Assessment and Plan Assessment and plan (1) Encounter for screening colonoscopy: Code(s): Z12.11 - Encounter for screening for malignant neoplasm of colon Status: Acute Assessment and Plan: The patient is deemed a good candidate for the procedure. Consent signed. Will proceed.
[2025-06-27 08:21] VITALS: BP 113/75; PULSE 76; RESP 25; O2SAT 98
[2025-06-27 08:31] VITALS: BP 121/86; PULSE 74; RESP 19; O2SAT 98
[2025-06-27 08:41] VITALS: BP 134/91; PULSE 73; RESP 20; O2SAT 100
== END 2025-06-27 08:48 | disposition home or self-care (01) ==
PROVIDERS: PCP Physician Assistant Medical; Referring Provider Physician Assistant Medical; Visit Provider Internal Medicine Gastroenterology
PROC: 0DJD8ZZ Inspection of Lower Intestinal Tract, Via Natural or Artificial Opening Endoscopic (ICD-10-PCS; CPT 45378; principal; 2025-06-27 08:15)
DX: Z12.11 Encounter for screening for malignant neoplasm of colon (principal)
CPT/HCPCS: 45378; J2003; J2704; J7120